=== PATIENT | female | born 1950 | race Two or more races ===

== ENCOUNTER → 2018-09-08 | Emergency (ER) | payer MEDICARE, OTHER ==
[~2018-09-08] VITALS: Ht 162.6 cm; Wt 73.9 kg
[~2018-09-08] MED LIST: IV NS 0.9% 1,000 ML BAG IV ONE; MAG HYDROX/AL HYDROX/SIMETH 30 ML UDC ONE; MAG HYDROX/AL HYDROX/SIMETH 30 ML UDC PO ONE; ONDANSETRON HCL/PF 4 MG/2 ML VIAL IVP ONE; ONDANSETRON HCL/PF 4 MG/2 ML VIAL ONE; PANTOPRAZOLE 40 MG VIAL IV ONE; PANTOPRAZOLE 40 MG VIAL ONE
--- NOTE | 2018-09-08 22:16 | NUR ---
URINE COLLECTED AND SENT TO LAB
--- NOTE | 2018-09-08 22:22 | NUR ---
IV INITIATED RAC 18G. LABS DRAWN FROM SITE. EDUCATIONAL FUNDRAISING DIRECTOR AT BEDSIDE FOR COLLECTION. IV INTACT AND PATENT,PLACED ON SALINE LOCK
[2018-09-08 22:23] LABS: APPEARANCE,URINE Clear (CLEAR); BILIRUBIN,URINE Negative (NEGATIVE); BLOOD, URINE Negative Ery/uL (NEGATIVE); COLOR,URINE Yellow (YELLOW); KETONES,URINE Negative (NEGATIVE); LEUKOCYTE ESTERASE ,URINE Negative (NEGATIVE); NITRITE, URINE Negative (NEGATIVE); PH,URINE 5.5 (5.0-8.0); PROTEIN,URINE Negative (NEGATIVE); UGLUCOSE Negative (NEGATIVE); UROBILINOGEN,URINE 0.2 EU/dL (0.2)
[2018-09-08 22:25] LABS: BASOPHILS # (AUTO) 0.1 /CMM (0.0-0.2); BASOPHILS % (AUTO) 0.7 % (0.0-2.0); EOSINOPHILS % (AUTO) 2.3 % (0.0-6.0); HEMATOCRIT 39 % (33-45); HEMOGLOBIN 13.3 g/dL (11.5-14.8); LYMPHOCYTES % (AUTO) 40.5 % (20.0-44.0); MEAN CORPUSCULAR HGB CONC 34 g/dl (31.0-36.0); MEAN CORPUSCULAR VOLUME 89 fL (82-100); MONOCYTES # (AUTO) 0.5 /CMM (0.1-1.30); MONOCYTES % (AUTO) 5.3 % (2.0-12.0); NEUTROPHILS # (AUTO) 5.1 /CMM (1.8-8.9); NEUTROPHILS % (AUTO) 51.2 % (43.0-81.0); PLATELET COUNT (AUTO) 252 /CMM (150-450); RED BLOOD CELL COUNT(AUTO) 4.45 MIL/uL (4.0-5.2); WHITE BLOOD COUNT (AUTO) 9.9 K/uL (4.3-11.0)
[2018-09-08 22:33] LABS: CALCIUM, SERUM 9.2 mg/dL (8.5-10.1); CREATININE 0.6 mg/dL (0.6-1.3); POTASSIUM 3.7 mmol/L (3.5-5.1)
[2018-09-08 22:39] LABS: ALBUMIN 4.2 g/dL (3.4-5.0); BILIRUBIN,DIRECT 0.1 mg/dL (0.0-0.2); BILIRUBIN,TOTAL 0.6 mg/dL (0.2-1.0); TOTAL PROTEIN, SERUM 7.4 g/dL (6.4-8.2)
--- NOTE | 2018-09-09 00:50 | NUR ---
Patient discharged to home in stable condition. Written and verbal after care instructions given. Patient verbalizes understanding of instruction.VSS. IV removed. Catheter intact and site benign. Pressure and 4x4 applied to site. No bleeding noted.
[2018-09-09 00:51] VITALS: BP 136/92
== END | disposition home or self-care (01) ==
LOC: ER 22:10
DX: R10.13 Epigastric pain (principal); R11.2 Nausea with vomiting, unspecified; E03.9 Hypothyroidism, unspecified; M79.7 Fibromyalgia; Z90.49 Acquired absence of other specified parts of digestive tract
CPT/HCPCS: 36415; 74176; 80048; 80076; 81001; 83690; 85025; 93005; 96361; 96374; 96375; 99284; C9113; J2405; 81000-TC

== ENCOUNTER 2019-03-26 14:43 | Emergency (ER) | payer MEDICARE, OTHER ==
[~2019-03-26] VITALS: Ht 162.6 cm; Wt 79.4 kg
[2019-03-26 14:46] VITALS: BP 133/79
[2019-03-26] MEDS ORDERED: ONDANSETRON HCL/PF 4 MG/2 ML VIAL ONE (15:28)
[2019-03-26 15:29] LABS: BASOPHILS % (AUTO) 0.4 % (0.0-2.0); EOSINOPHILS % (AUTO) 1.2 % (0.0-6.0); HEMATOCRIT 39 % (33-45); HEMOGLOBIN 12.9 g/dL (11.5-14.8); LYMPHOCYTES # (AUTO) 1.3 /CMM (0.8-4.8); LYMPHOCYTES % (AUTO) 16.6 % (20.0-44.0); MEAN CORPUSCULAR HGB CONC 33 g/dl (31.0-36.0); MEAN CORPUSCULAR VOLUME 88 fL (82-100); MONOCYTES # (AUTO) 0.4 /CMM (0.1-1.30); MONOCYTES % (AUTO) 4.9 % (2.0-12.0); NEUTROPHILS # (AUTO) 6.1 /CMM (1.8-8.9); NEUTROPHILS % (AUTO) 76.9 % (43.0-81.0); PLATELET COUNT (AUTO) 230 /CMM (150-450); RED BLOOD CELL COUNT(AUTO) 4.43 MIL/uL (4.0-5.2); WHITE BLOOD COUNT (AUTO) 7.9 K/uL (4.3-11.0)
[2019-03-26] MEDS ORDERED: ONDANSETRON HCL/PF 4 MG/2 ML VIAL IVP ONE (15:30)
[2019-03-26 15:37] LABS: CALCIUM, SERUM 9.2 mg/dL (8.5-10.1); CREATININE 0.6 mg/dL (0.6-1.3); POTASSIUM 4.5 mmol/L (3.5-5.1)
[2019-03-26 15:43] LABS: ALBUMIN 3.7 g/dL (3.4-5.0); BILIRUBIN,DIRECT 0.2 mg/dL (0.0-0.2)
[2019-03-26 15:55] LABS: APPEARANCE,URINE Clear (CLEAR); BILIRUBIN,URINE Negative (NEGATIVE); BLOOD, URINE Small Ery/uL (NEGATIVE); COLOR,URINE Yellow (YELLOW); KETONES,URINE 80 (NEGATIVE); LEUKOCYTE ESTERASE ,URINE Trace (NEGATIVE); NITRITE, URINE Negative (NEGATIVE); PH,URINE 5.5 (5.0-8.0); PROTEIN,URINE Negative (NEGATIVE); UGLUCOSE Negative (NEGATIVE); UROBILINOGEN,URINE 0.2 EU/dL (0.2)
[2019-03-26 16:02] LABS: BACTERIA,URINE None seen /HPF (None Seen); RBC,URINE 0-2 /HPF (0-2); SQUAMOUS EPITHELIAL CELL,UR Few /HPF (None Seen); WBC,URINE 0-2 /HPF (0-3)
--- NOTE | 2019-03-26 16:13 | NUR ---
Patient awake alert non distress medication given ,blood works done awaiting for result
--- NOTE | 2019-03-26 16:56 | NUR ---
Patient discharged to home in stable condition. Written and verbal after care instructions given. Patient verbalizes understanding of instruction.
== END 2019-03-26 17:00 | disposition home or self-care (01) ==
LOC: ER 14:48
DX: K80.50 Calculus of bile duct without cholangitis or cholecystitis without obstruction (principal); R30.0 Dysuria; R31.9 Hematuria, unspecified; E03.9 Hypothyroidism, unspecified; I10 Essential (primary) hypertension
CPT/HCPCS: 36415; 80048; 80076; 81001; 83690; 85025; 96374; 99283; J2405; 81000-TC; J7030

== ENCOUNTER 2019-05-10 19:31 | Emergency (ER) | payer MEDICARE, OTHER ==
[~2019-05-10] VITALS: Ht 160 cm; Wt 61.2 kg
--- NOTE | 2019-05-10 19:45 | NUR ---
PT CAME IN FOR GENERALIZED BODYACHES,+FEVER, AND FLU LIKE SYMPTOMS. PT AAOX4, RR EVEN AND UNLABOREDON RA W/ NAD NOTED. PT CONNECTED TO THE MONITOR AND POX. AWAITING FOR MD LEE
--- NOTE | 2019-05-10 19:50 | NUR ---
URINE COLELCTED AND SENT TO LAB
--- NOTE | 2019-05-10 19:50 | NUR ---
BLOOD COLLECTED AND SENT TO LAB
[2019-05-10] MEDS ORDERED: CEFTRIAXONE 1GM BAG (ER ONLY) 50 ML IV ONE ×2 (19:57→22:07)
[2019-05-10] MEDS ORDERED: KETOROLAC TROMETHAMINE 15 MG/ML VIAL ONE (19:57)
[2019-05-10] MEDS ORDERED: IV NS 0.9% 1,000 ML BAG IV ONE (20:00)
[2019-05-10] MEDS ORDERED: KETOROLAC TROMETHAMINE INJ 30 MG/ML VIAL IV ONE (20:00)
[2019-05-10] MEDS ORDERED: CEFTRIAXONE 1 G in IV D5W 50 ML IV ONE (20:00)
[2019-05-10 20:16] LABS: BASOPHILS # (AUTO) 0.1 /CMM (0.0-0.2); BASOPHILS % (AUTO) 0.4 % (0.0-2.0); EOSINOPHILS % (AUTO) 0.1 % (0.0-6.0); HEMATOCRIT 37 % (33-45); HEMOGLOBIN 12.2 g/dL (11.5-14.8); LYMPHOCYTES % (AUTO) 7.7 % (20.0-44.0); MEAN CORPUSCULAR HGB CONC 34 g/dl (31.0-36.0); MEAN CORPUSCULAR VOLUME 87 fL (82-100); MONOCYTES # (AUTO) 0.7 /CMM (0.1-1.30); MONOCYTES % (AUTO) 5.6 % (2.0-12.0); NEUTROPHILS # (AUTO) 11.6 /CMM (1.8-8.9); NEUTROPHILS % (AUTO) 86.2 % (43.0-81.0); PLATELET COUNT (AUTO) 230 /CMM (150-450); RED BLOOD CELL COUNT(AUTO) 4.17 MIL/uL (4.0-5.2); WHITE BLOOD COUNT (AUTO) 13.5 K/uL (4.3-11.0)
[2019-05-10 20:27] LABS: ALBUMIN 3.5 g/dL (3.4-5.0); BILIRUBIN,DIRECT 0.2 mg/dL (0.0-0.2); BILIRUBIN,TOTAL 1.2 mg/dL (0.2-1.0); CREATININE 0.7 mg/dL (0.6-1.3); POTASSIUM 3.3 mmol/L (3.5-5.1); TOTAL PROTEIN, SERUM 7.2 g/dL (6.4-8.2)
[2019-05-10] MEDS ORDERED: CT SWABBABLE VALVE TRANS SET 1 EA INFUS.SET MC ONE (20:51)
[2019-05-10] MEDS ORDERED: IV NS 0.9% 250 ML IV ONE (20:51)
[2019-05-10] MEDS ORDERED: IOHEXOL-300 100 ML VIAL IV ONE (20:51)
[2019-05-10 21:57] LABS: APPEARANCE,URINE CLEAR (CLEAR); BILIRUBIN,URINE NEGATIVE (NEGATIVE); BLOOD, URINE MODERATE Ery/uL (NEGATIVE); COLOR,URINE YELLOW (YELLOW); KETONES,URINE 15 (NEGATIVE); LEUKOCYTE ESTERASE ,URINE MODERATE (NEGATIVE); NITRITE, URINE NEGATIVE (NEGATIVE); PROTEIN,URINE NEGATIVE (NEGATIVE); UGLUCOSE NEGATIVE (NEGATIVE); UROBILINOGEN,URINE 0.2 EU/dL (0.2)
[2019-05-10] MEDS ORDERED: CEFTRIAXONE 1GM BAG (ER ONLY) 1 GM/50 ML PIGGYBACK IV ONE (22:00)
[2019-05-10 22:02] LABS: BACTERIA,URINE 1+ /HPF (None Seen); WBC,URINE 81-100 /HPF (0-3)
[2019-05-10] MEDS ORDERED: LEVO100T9 PO (22:02)
[2019-05-10 22:03] LABS: SQUAMOUS EPITHELIAL CELL,UR Few /HPF (None Seen)
[2019-05-10] MEDS ORDERED: OLME40TA12 PO (22:03)
[2019-05-10] MEDS ORDERED: NAPR500T6 PO (22:04)
[2019-05-10] MEDS ORDERED: PREG75CA PO (22:05)
[2019-05-10 22:40] VITALS: BP 107/67
--- NOTE | 2019-05-10 22:40 | NUR ---
Patient discharged to home in stable condition. Written and verbal after care instructions given. Patient verbalizes understanding of instruction.IV removed. Catheter intact and site benign. Pressure and 4x4 applied to site. No bleeding noted.
== END 2019-05-10 22:41 | disposition home or self-care (01) ==
LOC: ER 19:33
DX: N12 Tubulo-interstitial nephritis, not specified as acute or chronic (principal); I10 Essential (primary) hypertension; M81.0 Age-related osteoporosis without current pathological fracture; E03.9 Hypothyroidism, unspecified; M79.7 Fibromyalgia; Z79.899 Other long term (current) drug therapy
CPT/HCPCS: 36415; 71045; 74177; 80048; 80076; 81001; 83605; 83690; 85025; 87040 ×2; 87086; 87804 ×2; 96365; 96366; 96375; 99285; J0696 ×3; J1885; J7030; J7050; J7060; Q9967; 81000-TC

== ENCOUNTER 2023-04-21 23:57 | Emergency (ER) | payer MEDICARE, OTHER ==
[~2023-04-21] VITALS: Ht 152.4 cm; Wt 74.8 kg
[~2023-04-21 23:57] MED LIST changes: -IV NS 0.9% 1,000 ML BAG IV ONE; +LEVO100T9 PO; -MAG HYDROX/AL HYDROX/SIMETH 30 ML UDC ONE; -MAG HYDROX/AL HYDROX/SIMETH 30 ML UDC PO ONE; +NAPR500T6 PO; +OLME40TA12 PO; -ONDANSETRON HCL/PF 4 MG/2 ML VIAL IVP ONE; -ONDANSETRON HCL/PF 4 MG/2 ML VIAL ONE; -PANTOPRAZOLE 40 MG VIAL IV ONE; -PANTOPRAZOLE 40 MG VIAL ONE; +PREG75CA PO
[2023-04-22 00:39] VITALS: BP 159/86; TEMP 98.7; O2SAT 97
[2023-04-22] MEDS ORDERED: TDAP [DIPH/PERTUSSIS/TET] 0.5 ML VIAL IM ONE (00:42)
[2023-04-22] MEDS ORDERED: AMOX/CLAVULANATE 875 MG TABLET ONE (00:42)
[2023-04-22] MEDS ORDERED: AMOX-430 PO (00:43)
[2023-04-22] MEDS: AMOX/CLAVULANATE 875 MG TABLET PO ONE (00:44)
[2023-04-22] MEDS: TDAP [DIPH/PERTUSSIS/TET] 0.5 ML VIAL IM ONE (00:44)
== END 2023-04-22 00:58 | disposition home or self-care (01) ==
LOC: ER 04-22
DX: S51.851A Open bite of right forearm, initial encounter (principal); I10 Essential (primary) hypertension; E03.9 Hypothyroidism, unspecified; M79.7 Fibromyalgia; W54.0XXA Bitten by dog, initial encounter; Y93.89 Activity, other specified; Y92.89 Other specified places as the place of occurrence of the external cause; Y99.8 Other external cause status
CPT/HCPCS: 90715

== ENCOUNTER 2024-10-03 16:15 | Emergency (ER) | payer MEDICARE, OTHER ==
[~2024-10-03] VITALS: Ht 162.6 cm; Wt 77.1 kg
[~2024-10-03 16:15] MED LIST changes: +AMOX-430 PO
[2024-10-03 17:20] VITALS: TEMP 98.3
[2024-10-03] MEDS ORDERED: PRED50TA PO (18:09)
[2024-10-03 18:16] VITALS: BP 128/66; O2SAT 98
== END 2024-10-03 18:16 | disposition home or self-care (01) ==
LOC: ER 16:18
DX: R21 Rash and other nonspecific skin eruption (principal); I10 Essential (primary) hypertension; J45.909 Unspecified asthma, uncomplicated; M79.7 Fibromyalgia; M81.0 Age-related osteoporosis without current pathological fracture; Z79.890 Hormone replacement therapy; Z60.2 Problems related to living alone; Z79.899 Other long term (current) drug therapy
CPT/HCPCS: 99283; J7512